=== PATIENT | male | born 1960 | race Caucasian/White ===

== ENCOUNTER → 2023-07-27 | Outpatient (CLI) | payer OTHER ==
[2023-07-27 10:35] LABS: BASO # 0.06 K/mm3 (0.02-0.10); EOS # 0.22 K/mm3 (0.04-0.40); EOS % 3.3 % (0.0-4.0); HEMATOCRIT 37.9 % (42.0-52.0); HEMOGLOBIN 12.1 g/dL (13.5-18.0); MEAN CELL VOLUME 87 fl (78-100); MEAN CORPUSCULAR HEMOGLOBIN 28 pg (27-31); MEAN CORPUSCULAR HGB CONC 32 g/dL (33-37); MEAN PLATELET VOLUME 9.5 fl (7.4-10.4); MONO # 0.51 K/mm3 (0.20-0.80); NEU # 4.15 K/mm3 (1.40-6.50); PLATELET COUNT 311 K/mm3 (130-400); RED BLOOD COUNT 4.36 M/mm3 (4.20-5.60); RED CELL DISTRIBUTION WIDTH 14.9 % (11.5-14.5); WHITE BLOOD COUNT 6.6 K/mm3 (4.8-10.8)
[2023-07-27 10:41] LABS: ALBUMIN 4.2 g/dL (3.4-4.8); POTASSIUM 4.2 mmol/L (3.5-5.1)
[2023-07-27 10:42] LABS: CALCIUM 9.9 mg/dL (8.3-10.5)
[2023-07-27 10:44] LABS: TOTAL PROTEIN 6.9 g/dL (6.2-8.1)
[2023-07-27 10:46] LABS: TOTAL BILIRUBIN 0.7 mg/dL (0.2-1.2)
[2023-07-27 11:37] LABS: ERYTHROCYTE SEDIMENTATION RATE 3 mm/hr (0-20)
== END ==
LOC: LAB 10:16
PROVIDERS: Internal Medicine
DX: M54.16 Radiculopathy, lumbar region (principal); M54.12 Radiculopathy, cervical region; K90.9 Intestinal malabsorption, unspecified; E78.2 Mixed hyperlipidemia; M06.4 Inflammatory polyarthropathy

== ENCOUNTER → 2023-10-24 | Day surgery (SDC) | payer OTHER | END | disposition home or self-care (01) | LOC: MSO 08:34 | DX: Z12.11 Encounter for screening for malignant neoplasm of colon (principal); Z80.0 Family history of malignant neoplasm of digestive organs; K57.30 Diverticulosis of large intestine without perforation or abscess without bleeding | CPT/HCPCS: 00812; J2704; J3010; J7120 ==

== ENCOUNTER → 2023-12-08 | Outpatient (CLI) | payer OTHER ==
[2023-12-08 08:54] LABS: BASO # 0.09 K/mm3 (0.02-0.10); EOS # 0.41 K/mm3 (0.04-0.40); HEMATOCRIT 40.9 % (42.0-52.0); HEMOGLOBIN 13.2 g/dL (13.5-18.0); LYMPH# 1.18 K/mm3 (1.50-4.00); MEAN CELL VOLUME 89 fl (78-100); MEAN CORPUSCULAR HEMOGLOBIN 29 pg (27-31); MEAN CORPUSCULAR HGB CONC 32 g/dL (33-37); MONO # 0.59 K/mm3 (0.20-0.80); NEU # 4.51 K/mm3 (1.40-6.50); PLATELET COUNT 324 K/mm3 (130-400); RED BLOOD COUNT 4.58 M/mm3 (4.20-5.60); WHITE BLOOD COUNT 6.8 K/mm3 (4.8-10.8)
[2023-12-08 09:04] LABS: SODIUM 141 mmol/L (136-145)
[2023-12-08 09:05] LABS: ALBUMIN 4.4 g/dL (3.4-4.8)
[2023-12-08 09:06] LABS: CALCIUM 9.4 mg/dL (8.3-10.5)
[2023-12-08 09:07] LABS: GLUCOSE 99 mg/dL (75-110)
[2023-12-08 09:08] LABS: CARBON DIOXIDE 28 mmol/L (23-31)
[2023-12-08 09:09] LABS: TOTAL BILIRUBIN 0.5 mg/dL (0.2-1.2)
[2023-12-08 09:12] LABS: AST-SGOT 29 U/L (5-34)
[2023-12-08 09:13] LABS: MAGNESIUM 1.88 mg/dL (1.60-2.60)
[2023-12-08 09:14] LABS: ALT/SGPT 34 U/L (0-55)
[2023-12-08 23:40] LABS: HEPATITIS C VIRUS ANTIBODY Reactive (Negative)
== END ==
LOC: LAB 08:40
PROVIDERS: Internal Medicine
DX: Z12.5 Encounter for screening for malignant neoplasm of prostate (principal); Z12.11 Encounter for screening for malignant neoplasm of colon; Z11.59 Encounter for screening for other viral diseases; K90.9 Intestinal malabsorption, unspecified; E78.2 Mixed hyperlipidemia; M06.4 Inflammatory polyarthropathy

== ENCOUNTER → 2023-12-12 | Outpatient (CLI) | payer OTHER | LOC: LAB 07:11 | DX: Z86.19 Personal history of other infectious and parasitic diseases (principal) ==

== ENCOUNTER → 2024-01-27 | Outpatient (CLI) | payer OTHER | LOC: RAD 08:47 | DX: M16.11 Unilateral primary osteoarthritis, right hip (principal); M51.36 Other intervertebral disc degeneration, lumbar region ==

== ENCOUNTER → 2024-04-02 | Outpatient (CLI) | payer OTHER ==
[~2024-04-02] MED LIST: MELOXICAM7.5 MG PO; MULTIVITAMIN PO; NATURE'S BLEND500 M5 PO; NEURONTIN300 M1 PO; PLAQUENIL 200M200 MG PO; ROBAXIN 75750 MG/TA1 PO; TRAMADOL 50 MG TAB PO; VITAMIN C PUR1000 MG PO; VITAMIN D3125 MC1 PO
[2024-05-22 13:45] LABS: ALBUMIN 4.4 g/dL (3.4-4.8); CALCIUM 10.2 mg/dL (8.3-10.5); MAGNESIUM 1.89 mg/dL (1.60-2.60); TOTAL BILIRUBIN 0.5 mg/dL (0.2-1.2); TOTAL PROTEIN 6.9 g/dL (6.2-8.1)
[2024-05-22 13:53] LABS: BASO # 0.07 K/mm3 (0.02-0.10); EOS # 0.29 K/mm3 (0.04-0.40); EOS % 5.4 % (0.0-4.0); HEMATOCRIT 39.6 % (42.0-52.0); HEMOGLOBIN 12.7 g/dL (13.5-18.0); LYMPH# 1.66 K/mm3 (1.50-4.00); MEAN CELL VOLUME 87 fl (78-100); MEAN CORPUSCULAR HEMOGLOBIN 28 pg (27-31); MEAN CORPUSCULAR HGB CONC 32 g/dL (33-37); MEAN PLATELET VOLUME 9.3 fl (7.4-10.4); MONO # 0.64 K/mm3 (0.20-0.80); PLATELET COUNT 313 K/mm3 (130-400); RED BLOOD COUNT 4.53 M/mm3 (4.20-5.60); WHITE BLOOD COUNT 5.4 K/mm3 (4.8-10.8)
[2024-05-22 14:04] LABS: URINE APPEARANCE CLEAR (CLEAR); URINE COLOR YELLOW (YELLOW)
[2024-05-22 14:05] LABS: URINE BILIRUBIN NEGATIVE (NEGATIVE); URINE BLOOD NEGATIVE (NEGATIVE); URINE GLUCOSE NEGATIVE (NEGATIVE); URINE KETONE NEGATIVE (NEGATIVE); URINE LEUKOCYTE ESTERASE NEGATIVE (NEGATIVE); URINE NITRATE NEGATIVE (NEGATIVE); URINE PROTEIN(semi-quant) NEGATIVE (NEGATIVE); URINE WBC 0-1 /hpf (0-3)
== END ==
LOC: LAB 12:30
PROVIDERS: Internal Medicine
DX: Z01.818 Encounter for other preprocedural examination (principal)

== ENCOUNTER → 2024-04-06 | Outpatient (CLI) | payer OTHER | LOC: AMSURD 08:46 | DX: Z01.818 Encounter for other preprocedural examination (principal) ==

== ENCOUNTER → 2024-05-16 | Outpatient (CLI) | payer OTHER ==
[2024-05-16 13:05] LABS: BASO # 0.07 K/mm3 (0.02-0.10); EOS # 0.09 K/mm3 (0.04-0.40); EOS % 1.1 % (0.0-4.0); HEMATOCRIT 29.1 % (42.0-52.0); LYMPH# 1.71 K/mm3 (1.50-4.00); MEAN CELL VOLUME 84 fl (78-100); MEAN CORPUSCULAR HEMOGLOBIN 26 pg (27-31); MEAN CORPUSCULAR HGB CONC 31 g/dL (33-37); MEAN PLATELET VOLUME 8.9 fl (7.4-10.4); MONO # 0.65 K/mm3 (0.20-0.80); PLATELET COUNT 695 K/mm3 (130-400); RED BLOOD COUNT 3.47 M/mm3 (4.20-5.60); WHITE BLOOD COUNT 7.9 K/mm3 (4.8-10.8)
[2024-05-16 13:11] LABS: ALBUMIN 3.9 g/dL (3.4-4.8)
[2024-05-16 13:13] LABS: CALCIUM 9.3 mg/dL (8.3-10.5)
[2024-05-16 13:14] LABS: TOTAL PROTEIN 6.9 g/dL (6.2-8.1)
[2024-05-16 13:16] LABS: TOTAL BILIRUBIN 0.3 mg/dL (0.2-1.2)
== END ==
LOC: LAB 11:40
PROVIDERS: Physician Assistant
DX: T81.32XD Disruption of internal operation (surgical) wound, not elsewhere classified, subsequent encounter (principal); T81.40XA Infection following a procedure, unspecified, initial encounter; Z98.890 Other specified postprocedural states

== ENCOUNTER → 2024-05-23 | Outpatient (CLI) | payer OTHER ==
[2024-05-23 09:49] LABS: BASO # 0.06 K/mm3 (0.02-0.10); EOS % 1.3 % (0.0-4.0); HEMATOCRIT 30.2 % (42.0-52.0); HEMOGLOBIN 9.4 g/dL (13.5-18.0); LYMPH# 1.47 K/mm3 (1.50-4.00); MEAN CELL VOLUME 85 fl (78-100); MEAN CORPUSCULAR HEMOGLOBIN 26 pg (27-31); MEAN CORPUSCULAR HGB CONC 31 g/dL (33-37); MEAN PLATELET VOLUME 9.2 fl (7.4-10.4); MONO # 0.67 K/mm3 (0.20-0.80); NEU # 5.59 K/mm3 (1.40-6.50); PLATELET COUNT 631 K/mm3 (130-400); RED BLOOD COUNT 3.56 M/mm3 (4.20-5.60); WHITE BLOOD COUNT 7.9 K/mm3 (4.8-10.8)
[2024-05-23 09:57] LABS: CALCIUM 9.5 mg/dL (8.3-10.5)
[2024-05-23 10:00] LABS: TOTAL BILIRUBIN 0.2 mg/dL (0.2-1.2)
== END ==
LOC: LAB 08:44
PROVIDERS: Physician Assistant
DX: T81.32XD Disruption of internal operation (surgical) wound, not elsewhere classified, subsequent encounter (principal); T81.40XA Infection following a procedure, unspecified, initial encounter; Z98.890 Other specified postprocedural states

== ENCOUNTER → 2024-05-30 | Outpatient (CLI) | payer OTHER ==
[2024-05-30 09:53] LABS: HEMOGLOBIN 9.6 g/dL (13.5-18.0); MEAN PLATELET VOLUME 9.2 fl (7.4-10.4); RED BLOOD COUNT 3.64 M/mm3 (4.20-5.60); RED CELL DISTRIBUTION WIDTH 15.2 % (11.5-14.5); WHITE BLOOD COUNT 6.4 K/mm3 (4.8-10.8)
[2024-05-30 10:02] LABS: ALBUMIN 3.9 g/dL (3.4-4.8)
[2024-05-30 10:03] LABS: CALCIUM 9.8 mg/dL (8.3-10.5)
[2024-05-30 10:04] LABS: TOTAL PROTEIN 6.7 g/dL (6.2-8.1)
[2024-05-30 10:06] LABS: TOTAL BILIRUBIN 0.3 mg/dL (0.2-1.2)
== END ==
LOC: LAB 08:57
PROVIDERS: Physician Assistant
DX: T81.32XD Disruption of internal operation (surgical) wound, not elsewhere classified, subsequent encounter (principal); T81.40XA Infection following a procedure, unspecified, initial encounter; Z98.890 Other specified postprocedural states

== ENCOUNTER → 2024-06-13 | Outpatient (CLI) | payer OTHER ==
[~2024-06-13] MED LIST changes: +ERTAPENEM1 GM IJ
[2024-06-13 09:54] LABS: HEMATOCRIT 33.8 % (42.0-52.0); HEMOGLOBIN 10.7 g/dL (13.5-18.0); MEAN PLATELET VOLUME 9.6 fl (7.4-10.4); RED BLOOD COUNT 4.01 M/mm3 (4.20-5.60); RED CELL DISTRIBUTION WIDTH 15.2 % (11.5-14.5); WHITE BLOOD COUNT 5.8 K/mm3 (4.8-10.8)
[2024-06-13 10:09] LABS: CALCIUM 9.6 mg/dL (8.3-10.5)
[2024-06-13 10:10] LABS: TOTAL PROTEIN 7.1 g/dL (6.2-8.1)
[2024-06-13 10:12] LABS: TOTAL BILIRUBIN 0.3 mg/dL (0.2-1.2)
== END ==
LOC: LAB 09:18
PROVIDERS: Physician Assistant
DX: T81.40XA Infection following a procedure, unspecified, initial encounter (principal); T81.32XD Disruption of internal operation (surgical) wound, not elsewhere classified, subsequent encounter; Z98.890 Other specified postprocedural states

== ENCOUNTER → 2025-01-28 | Outpatient (CLI) | payer MEDICARE ==
[2025-01-28 09:43] LABS: BASO # 0.05 K/mm3 (0.02-0.10); EOS % 2.7 % (0.0-4.0); HEMATOCRIT 39.9 % (42.0-52.0); HEMOGLOBIN 12.4 g/dL (13.5-18.0); LYMPH# 1.58 K/mm3 (1.50-4.00); MEAN CELL VOLUME 85 fl (78-100); MEAN CORPUSCULAR HEMOGLOBIN 27 pg (27-31); MEAN CORPUSCULAR HGB CONC 31 g/dL (33-37); NEU # 4.94 K/mm3 (1.40-6.50); PLATELET COUNT 365 K/mm3 (130-400); RED BLOOD COUNT 4.68 M/mm3 (4.20-5.60); RED CELL DISTRIBUTION WIDTH 14.5 % (11.5-14.5); WHITE BLOOD COUNT 7.5 K/mm3 (4.8-10.8)
[2025-01-28 10:05] LABS: ALBUMIN 4.4 g/dL (3.4-4.8)
[2025-01-28 10:06] LABS: CALCIUM 9.4 mg/dL (8.3-10.5)
[2025-01-28 10:07] LABS: TOTAL PROTEIN 7.7 g/dL (6.2-8.1)
[2025-01-28 10:09] LABS: TOTAL BILIRUBIN 0.4 mg/dL (0.2-1.2)
== END ==
LOC: LAB 09:29
PROVIDERS: Internal Medicine
DX: Z12.5 Encounter for screening for malignant neoplasm of prostate (principal); Z12.11 Encounter for screening for malignant neoplasm of colon; K90.9 Intestinal malabsorption, unspecified; E78.2 Mixed hyperlipidemia; M06.4 Inflammatory polyarthropathy